=== PATIENT | female | born 2000 | race Caucasian/White ===

== ENCOUNTER 2018-08-31 15:40 | Emergency (ER) ==
[2018-08-31 15:46] VITALS: BP 131/87; TEMP 99.1; BMI 35.7
--- NOTE | 2018-08-31 16:37 | ED.PDOC ---
General ED Provider: Dr. JANETT LI Chief Complaint: Earache Stated Complaint: few days of right earache-small hematoma 1 cm from the external canal entry Time Seen by Physician: 16:46 Mode of Arrival: Walk-In Information Source: Patient Exam Limitations: No limitations Primary Care Provider: KARI DON Referred to ED by: Other Nursing and Triage Documentation Reviewed and Agree: Yes Does patient meet sepsis criteria?: No System Inflammatory Response Syndrome: Not Applicable Sepsis Protocol: For patient's 13 years and over: Temp is 96.8 and below OR 101 and greater Pulse >90 BPM Resp >20/minute Acutely Altered Mental Status Are patient's symptoms suggestive of a new infection, such as: -Pneumonia -Skin, Soft Tissue -Endocarditis -UTI -Bone, Joint Infection -Implantable Device -Acute Abdominal Infection -Wound Infection -Meningitis -Blood Stream Catheter Infection -Unknown EENT Complaint Exam - Ear Complaint/Exam Onset/Duration: n Timing: Intermittent Initial Severity: Mild Current Severity: Mild Character: Reports: Aching pain Aggravating: Reports: Tugging on ear Alleviating: Reports: None Associated Signs and Symptoms: Reports: Pain to external ear Ear Surgical History: None Vesicles to External Pinna: No Vesicles to Tragus: No TMJ Tenderness: None Mastoid Tenderness: None Tragal Tenderness: None External Canal: Tenderness Material in Canal: Present: Blood Differential Diagnoses: Cellulitis, Foreign Body, Trauma, Abrasion Review of Systems - Review Of Systems Constitutional: Reports: No symptoms Eyes: Reports: No symptoms Ears, Nose, Mouth, Throat: Reports: Ear pain Respiratory: Reports: No symptoms Cardiac: Reports: No symptoms GI: Reports: No symptoms : Reports: No symptoms Musculoskeletal: Reports: No symptoms Skin: Reports: No symptoms Neurological: Reports: No symptoms Endocrine: Reports: No symptoms Hematologic/Lymphatic: Reports: No symptoms All Other Systems: Reviewed and Negative Past Medical History - Past Medical History Previously Healthy: Yes Endocrine: Reports: None Cardiovascular: Reports: None Respiratory: Reports: None Hematological: Reports: None Gastrointestinal: Reports: None Genitourinary: Reports: None Neuro/Psych: Reports: None Musculoskeletal: Reports: None Cancer: Reports: None Last Menstrual Period: 1 month ago - Surgical History General Surgical History: Reports: None - Family History Family History: Reports: None - Social History Smoking Status: Never smoker Hx Substance Use: No Alcohol Screening: None - Immunizations Tetanus Shot up to Date: Yes Influenza Vaccine within 12 Months: No Pneumococcal Vaccine up to Date: No Physical Exam - Physical Exam Appearance: Well-appearing Ill-appearing: None Pain Distress: None Eyes: MEHRDAD Respiratory: Airway patent Cardiovascular: RRR, Tachycardia Musculoskeletal: Normal strength Skin: Warm, Dry Neurological: Sensation intact Critical Care Note - Critical Care Note Total Time (mins): 0 Course - Course Vital Signs: Temp Pulse Resp BP Pulse Ox 08/31/18 15:41 99.1 F 85 20 131/87 98 Departure - Departure Time of Disposition: 16:42 Disposition: HOME SELF-CARE Discharge Problem: Ear problem Instructions: Otitis Externa (ED) Condition: Good Pt referred to PMD for follow-up: No (refered to patients PCP for an ENT referral) IPMP verified?: No Additional Instructions: take Augmentin 875 mg bid x 7 days as prescribed.Cortisporin otic ear gtt to r external ar canal qid x 5 d Allergies/Adverse Reactions: Allergies No Known Allergies Allergy (Verified 08/31/18 15:48) Home Medications: Ambulatory Orders 1 [No Reported Medications] 11/26/14 Disposition Discussed With: Patient, Family
== END 2018-08-31 16:59 | disposition home or self-care (01) ==
LOC: ED 15:40
DX: H60.91 Unspecified otitis externa, right ear (principal)
CPT/HCPCS: 99282